=== PATIENT | male | born 2000 | race African-American/Black ===

== ENCOUNTER 2020-02-13 19:15 | Emergency (ER) | payer OTHER ==
[~2020-02-13] VITALS: Ht 177.8 cm; Wt 59.1 kg
--- NOTE | 2020-02-13 21:02 | NUR ---
wound irrigated and TAMI Garcia updated on status
[2020-02-13 21:45] VITALS: BP 122/69
[2020-02-13] MEDS ORDERED: HYDR-3965 PO (23:00)
[2020-02-13] MEDS ORDERED: CEPH-572 PO (23:00)
[2020-02-13] MEDS ORDERED: TETanus/Pertussis (Acell)/Diphther VAC/PF (Tdap-Adult) 0.5ml syringe IMVAC ONE (23:00)
[2020-02-14] MEDS ORDERED: HYDR-4353 PO (17:19)
== END 2020-02-13 23:14 | disposition home or self-care (01) ==
LOC: ER 19:17
DX: S68.626A Partial traumatic transphalangeal amputation of right little finger, initial encounter (principal); Z79.899 Other long term (current) drug therapy; X58.XXXA Exposure to other specified factors, initial encounter; Y93.89 Activity, other specified; Y92.89 Other specified places as the place of occurrence of the external cause; Y99.8 Other external cause status
CPT/HCPCS: 73130; 90471; 90715; 99283

== ENCOUNTER 2020-02-14 16:18 | Emergency (ER) | payer OTHER ==
[~2020-02-14] VITALS: Ht 177.8 cm; Wt 64.0 kg
[~2020-02-14 16:18] MED LIST: CEPH-572 PO; HYDR-3965 PO; LIDOcaine 1% W/epiNEPHrine 1:200,000 10ml vial ONE
[2020-02-14] MEDS ORDERED: HYDR-4353 PO (17:19)
[2020-02-14 17:39] VITALS: BP 117/62
== END 2020-02-14 17:42 | disposition home or self-care (01) ==
LOC: ER 16:19
DX: M79.644 Pain in right finger(s) (principal); Z48.00 Encounter for change or removal of nonsurgical wound dressing; Z79.899 Other long term (current) drug therapy
CPT/HCPCS: 64450; 99283; 99284